=== PATIENT | male | born 1960 | race Caucasian/White ===

== ENCOUNTER 2024-02-09 12:26 | Emergency (ER) | payer MEDICARE, OTHER, SELFPAY ==
[2024-02-09 12:27] VITALS: BP 162/96; PULSE 79; RESP 19; TEMP 36.4; O2SAT 100; BMI 25.3
--- NOTE | 2024-02-09 12:47 | ED.VIS.FALL ---
HPI HPI - Fall History of Present Illness Chief Complaint: Fall Narrative Narrative: Chief complaint and HPI: Right wrist pain after mechanical fall. 64-year-old male with no significant past medical history presents for evaluation of right wrist pain after mechanical fall. Patient states that he was pulling on a strap when he lost his balance and fell on his right outstretched arm. Patient has pain and swelling to the right wrist as well as mid forearm. Denies any numbness or tingling. Denies any elbow, hand, finger, shoulder pain. Denies injury elsewhere. Denies any his head. No LOC. Review of systems: See HPI Medications: As listed on the chart Allergies: As listed on the chart PFSH: Per chart Vital signs: As listed on the chart. Reviewed. Physical exam: Gen: A&O x3, NAD Head: Normocephalic, atraumatic Eyes: No sclera icterus, conjunctiva clear ENT: Moist mucous membranes Neck: Trachea midline, full range of motion CV: Regular rate Resp: Nonlabored respiration Musc: Full range of motion of the fingers, hand, elbow, shoulder without pain. Limited range of motion of the right wrist secondary to pain. Right wrist has swelling and is tender to palpation. Sensation intact. Radial and ulnar pulses plus 2 out of 4, good capillary refill, Compartments soft Skin: Warm, dry Neuro: Alert, oriented, grossly intact, sensation intact, GCS 15 Psych: Cooperative, appropriate mood and affect [facility] Home Medications ?Medication ?Instructions ?Recorded ?Last Taken ?Type ondansetron 4 mg disintegrating 4 mg PO Q8H PRN PRN Nausea #10 tabs 02/09/24 Unknown Rx tablet oxycodone-acetaminophen 5 mg-325 1 tab PO Q6H PRN PRN Pain 3 days 02/09/24 Unknown Rx mg tablet #12 TABLETS Allergy/AdvReac Type Severity Reaction Status Date / Time No Known Allergies Allergy Verified 02/09/24 12:28 EXAM Physical Exam Const Vital Signs: 02/09/24 12:27 02/09/24 12:48 Temperature 97.5 F L Temperature Source Temporal Pulse Rate 79 Respiratory Rate 19 H Respiratory Effort Normal Non-Labored Blood Pressure 162/96 H Blood Pressure Mean 118 Pulse Ox 100 Oxygen Delivery Method Room Air MDM MDM MDM Narrative Medical decision making narrative: 64-year-old male with no significant past medical history presents for evaluation of right wrist pain after mechanical fall. Differential diagnosis includes but is not limited to fracture, contusion, sprain. Patient was offered pain medication but declined. Based on his physical exam, I suspect fracture. Patient is right-handed. X-ray of the wrist and forearm ordered. X-rays of the wrist and forearm were personally reviewed and interpreted by me, ED physician. Patient has a right comminuted distal radius fracture. Patient was offered pain medicine prior to splinting. He declined. Patient was splinted and tolerated this well. See procedure note. Patient will be placed in a sling. Patient was educated on splint care as well as follow-up. Zofran and narcotics for pain as needed. Return precautions explained. Monitor for compartment syndrome. Patient stable to discharge home. Follow-up with orthopedics. Splint placement Indication: Right comminuted distal radial fracture Consent: Risks, benefits, and alternatives discussed with patient and consent obtained Procedure: Fracture was reduced to the best of my abilities utilizing traction. Immobilization was performed with sugar-tong splint to the right forearm. Sleeve, cotton roll, fiberglass splint-3 inches was applied. Alin bandage wrapped. The extremity's neurovascular status was re-checked and was unchanged from the pre-procedure exam. The patient tolerated the procedure without complications. Impression: 1. Comminuted distal radial fracture, status post splint placement 2. Mechanical fall Radiography Diagnostic Testing: Clinical Impression(s) from Imaging Studies Forearm X-Ray 02/09/24 12:50 IMPRESSION: Comminuted fracture of the right distal radius. Electronically Signed: Hillary Barbosa MD at 13:54 EST , Wrist X-Ray 02/09/24 12:50 IMPRESSION: Comminuted intra-articular fracture of the right distal radius. Electronically Signed: Hillary Barbosa MD at 13:55 EST , Discharge Plan Triage Chief Complaint: Fall ED Provider: James Bowens Dx/Rx/DC Orders Clinical Impression: Distal radius fracture, right Instructions: ED Mechanical Fall Prescriptions: New ondansetron 4 mg tablet,disintegrating 4 mg PO Q8H PRN PRN (Reason: Nausea) Qty: 10 0RF oxycodone-acetaminophen 5-325 mg tablet 1 tab PO Q6H PRN PRN (Reason: Pain) 3 Days Qty: 12 0RF Primary Care Provider: Care Physician,No Primary Referrals: David Pérez MD [Med Staff - Active Staff] - 3-5 Days NOT,DEFINED [Non-Staff] - Activity Restrictions/Additional Instructions: Splint needs to remain on it at times. Cannot get wet. No using your right arm. Do not drive while taking pain medicine. Follow-up with orthopedic surgery, call to make an appointment. Print Language: Thai Disposition Disposition: Home, Self Care
--- NOTE | 2024-02-09 12:50 | RAD_ITS ---
HISTORY: Trauma. TECHNIQUE: XR Forearm 2 Views. COMPARISON: None. FINDINGS: BONES : Comminuted fractures of the distal radius with intra-articular extension and no significant displacement. Mineralization unremarkable. JOINTS: No dislocation. Joint spaces maintained. SOFT TISSUES: Soft tissue swelling of the wrist. RAD/Forearm 2 Views IMPRESSION: Comminuted fracture of the right distal radius. Electronically Signed: Hillary Barbosa MD at 13:54 EST ,
--- NOTE | 2024-02-09 12:50 | RAD_ITS ---
HISTORY: Trauma. Fell, pain. TECHNIQUE: XR Wrist Min 3 Views. COMPARISON: None. FINDINGS: BONES : Comminuted intra-articular fracture of the distal radius without significant displacement. Mineralization unremarkable. JOINTS: No dislocation. Joint spaces maintained. SOFT TISSUES: Surrounding soft tissue swelling. RAD/Wrist min 3 Views IMPRESSION: Comminuted intra-articular fracture of the right distal radius. Electronically Signed: Hillary Barbosa MD at 13:55 EST ,
[2024-02-09 14:26] VITALS: PULSE 78; RESP 16; O2SAT 98
== END 2024-02-09 14:39 | disposition home or self-care (01) ==
PROVIDERS: Emergency Provider Surgery; Referring Provider Surgery; Visit Provider Surgery
DX: S52.571A Other intraarticular fracture of lower end of right radius, initial encounter for closed fracture (principal); W01.0XXA Fall on same level from slipping, tripping and stumbling without subsequent striking against object, initial encounter
CPT/HCPCS: 29125; 73090; 73110; 99283